=== PATIENT | female | born 1990 | race Caucasian/White ===

== ENCOUNTER 2017-01-14 15:16 | Emergency (ER) | payer BC ==
--- NOTE | ~2017-01-14 | CR63 ---
[facility]. [facility] A Service of [facility] & [facility] RADIOLOGY TEXT RESULTS PATIENT: DEIRDRE HAY LOCATION: SED : 88 UNIT #: [id number] AGE: [address]: Jake Currie MD SEX: F ORDER DR: [id number] [place] [id number] E MR#: [id number] Acc #: [id number] NAME: DEIRDRE HAY : 1990 SEX: F STUDY DATE/TIME: 01/14/2017 15:15 UNIT: SED ROOM: STUDY DESCRIPTION: CR Chest 2 View Attending Physician: Jake Currie M.D. Ordering Physician: Jake Currie M.D. Primary Care Physician: Dank Treviño M.D. MEDICAL IMAGING REPORT This report is preliminary unless electronic signature is present. EXAM Chest x-ray, 01/14 INDICATIONS Shortness of air, cough and back pain for 2 days. FINDINGS 2 views of the chest are compared with 10/02/2011. There is some densely consolidating pneumonia in the right middle lobe. The lungs are hyperinflated but otherwise clear except for some right upper lobe scarring. No pneumothorax. Heart size normal. IMPRESSION Persistent pulmonary hyperinflation. There is some pneumonia in the right middle lobe. Radiographic followup until clear is recommended. Dictated by... Julio César Gutiérrez Jr., M.D. THIS IS AN ELECTRONICALLY VERIFIED REPORT Julio César Gutiérrez Jr., M.D. at 01/15/2017 8:10 AM Celestine TD: 01/14/2017 20:25 JOB #: [id number] MEDICAL IMAGING REPORT Page 1 of 1
[~2017-01-14 15:16] MED LIST: ACETAMINOPHEN PO; BENZONATATE PO; CIPRO PO; ERYTHROMYCIN B500 MG PO; HYDROCODONE-APA1 T58 PO; IBUPROFEN800 MG PO; IRON TABLETS1 TAB PO; LEVAQUIN PO; LEVAQUIN750 MG PO; MACROBID100 MG PO; NO MEDICATIONS; PHENERGAN PO; PREDNISONE PO; PRILOSEC20 MG PO; PROAIR HFA8.5 GM IH; TYLENOL325 M1 PO
[2017-01-14 15:26] LABS: INFLUENZA A NEG (NEG); INFLUENZA B NEG (NEG)
== END 2017-01-14 16:13 | disposition home or self-care (01) ==
LOC: SED 15:16
PROVIDERS: Emergency Medicine
DX: J18.9 Pneumonia, unspecified organism (principal); Z88.0 Allergy status to penicillin
CPT/HCPCS: 71020; 87804; 99283

== ENCOUNTER 2017-03-11 01:27 | Emergency (ER) | payer BC ==
--- NOTE | ~2017-03-11 | EKG ---
PATIENT: DEIRDRE HAY UNIT #: [id number] Ventricular Rate: 88 BPM Atrial Rate: 88 BPM P-R Interval: 126 ms QRS Duration: 94 ms Q-T Interval: 396 ms QTC Calculation(Bezet): 479 ms P [place]: 65 degrees Calculated R [place]: 88 degrees Calculated T [place]: 65 degrees Diagnosis Line: Normal sinus rhythm Diagnosis Line: Normal ECG Baseline wander Diagnosis Line: No previous ECGs available Diagnosis Line: Confirmed by CALEB SCHNEIDER MD ([id number]) on 03/12/2017 Diagnosis Line: 10:34:45 AM INTERPRETING MD: JENNIE SANTOS
--- NOTE | ~2017-03-11 | CR72 ---
[facility] A Service of [facility] & [facility] RADIOLOGY TEXT RESULTS PATIENT: DEIRDRE HAY LOCATION: [facility] : [birth year] UNIT #: [id number] AGE: [address]: Shawn Connelly MD SEX: F ORDER DR: [id number] [facility] [address] [place], [place] [address] [id number] E MR#: [id number] Acc #: [id number] NAME: DEIRDRE HAY : 1990 SEX: F STUDY DATE/TIME: 03/11/2017 02:17 UNIT: [facility] ROOM: STUDY DESCRIPTION: CR Chest Single View Portable Attending Physician: Shawn Connelly M.D. Ordering Physician: Shawn Connelly M.D. Primary Care Physician: Dank Treviño M.D. MEDICAL IMAGING REPORT This report is preliminary unless electronic signature is present EXAM Portable chest 03/11/2017 at 0217 hours. INDICATION Cough, dizziness, and shortness of air for 2 weeks. FINDINGS AP portable chest is compared with 01/14/2017. Cardiac and mediastinal contours are normal. There is a small volume of right pleural fluid. Previously seen right basilar infiltrate has resolved. There may be some developing infiltrate or atelectasis at the left base. No pneumothorax. IMPRESSION Interval resolution of right side pneumonia, but there is a small right pleural effusion. There may be developing infiltrate or atelectasis at the left lung base today. Dictated by... Julio César Gutiérrez Jr., M.D. THIS IS AN ELECTRONICALLY VERIFIED REPORT Julio César Gutiérrez Jr., M.D. at 03/11/2017 5:56 AM HEIDI/gerardo TD: 03/11/2017 04:48 JOB #: [id number] MEDICAL IMAGING REPORT Page 1 of 1 COPY
[2017-03-11 02:00] LABS: BASOPHIL# 0.1 X10e3 (0-0.3); BASOPHIL% 0.3 % (0-2.5); DIFF IND YES; EOSINOPHIL# 0.9 X10e3 (0-0.7); HEMATOCRIT 36.2 % (35.0-45.0); LYMPHOCYTE# 1.2 X10e3 (1.0-3.5); LYMPHOCYTE% 5.5 % (17.0-45.0); MEAN CORPUSCULAR HEMOGLOBIN 28.4 PG (28-34); MEAN PLATELET VOLUME 8.4 FL (6.5-11.5); MONOCYTE# 1.8 X10e3 (0-1.0); MONOCYTE% 7.9 % (3.0-12.0); NEUTROPHIL# 18.5 X10e3 (1.5-7.1); NEUTROPHIL% 82.3 % (40-75); PLATELET COUNT 164 X10e3 (140-420); RED BLOOD COUNT 4.21 X10e (3.90-5.30); RED CELL DISTRIBUTION WIDTH 13.6 % (11.0-15.5); WHITE BLOOD COUNT 22.4 X10e3 (4.0-10.5)
[2017-03-11 02:17] LABS: ALBUMIN SERUM 3.9 g/dL (3.5-5.0); BILIRUBIN, DIRECT 0.2 mg/dL (0.0-0.2); BILIRUBIN,INDIRECT 0.8 mg/dL (0.0-0.9); BUN/CREATININE RATIO 16.66; CALCIUM SERUM 8.7 mg/dL (8.4-10.2); CREATININE SERUM 0.6 mg/dL (0.6-1.4); POTASSIUM 3.3 mmol/L (3.5-5.1); PROTEIN TOTAL SERUM 7.3 g/dL (6.0-8.3)
[2017-03-11 02:23] LABS: MICROCYTOSIS SL; PLATELET ESTIMATE DECREASED (NORMAL)
[2017-03-11 02:45] LABS: URINE SOURCE CLEAN CATCH
[2017-03-11 02:53] LABS: URINE APPEARANCE CLOUDY; URINE BILIRUBIN NEG (NEG); URINE BLOOD TRACE (NEG); URINE COLOR DK YELLOW; URINE GLUCOSE NEG (NEG); URINE KETONE 1+ (NEG); URINE LEUKOCYTE ESTERASE TRACE (NEG); URINE NITRATE NEG (NEG); URINE PROTEIN 1+ (NEG); URINE SPECIFIC GRAVITY 1.028 (1.003-1.035)
[2017-03-11 02:56] LABS: CULTURE INDICATED? YES; URINE BACTERIA AUWI 2+ (NEGATIVE); URINE SQUAMOUS EPITHELIAL CELL MOD /[HPF]; UWBCS1 AUWI 25-50 (0-5)
== END 2017-03-11 05:55 | disposition home or self-care (01) ==
LOC: CED 01:27
PROVIDERS: Emergency Medicine
DX: R07.89 Other chest pain (principal); R42 Dizziness and giddiness; F17.200 Nicotine dependence, unspecified, uncomplicated; N39.0 Urinary tract infection, site not specified; Z98.51 Tubal ligation status; Z88.0 Allergy status to penicillin
CPT/HCPCS: 36415; 71010; 80048; 80076; 81003; 82947; 84703; 85025; 87086; 93005; 96361; 96365; 96367; 96375; 99284; J0456; J0696; J2930